=== PATIENT | male | born 1965 | race Caucasian/White ===

== ENCOUNTER 2022-01-17 07:36 | Outpatient (CLI) | payer OTHER, SELFPAY ==
--- NOTE | 2022-01-17 | ECHO_ITS ---
Patient Info Name: Jesus Mckeon Age: 56 years : 1965 Gender: Male Ht: 70 in Wt: 197 lbs BSA: 2.12 m2 HR: 61 bpm BP: 130 / 80 mmHg Technical Quality: Good Exam Date: 01/17/2022 8:36 AM Exam Location: [facility] Patient Status: Outpatient Admit Date: 01/17/2022 Staff Ordering Physician: Kodak Riley Do Gold Miner: Brady Mcmahon, MARKO, RT Attending Provider: Kodak Riley Do Referring Physician: Osvaldo FIERRO; Exam Type: CA echo doppler color flow Study Info Indications R55 - Syncope and collapse Complete two-dimensional, color flow and Doppler transthoracic echocardiogram is performed. Strain analysis performed. Summary 1. Complete two-dimensional, color flow and Doppler transthoracic echocardiogram is performed. 2. Left ventricular chamber dimension is normal. 3. Left ventricular systolic function is normal, estimated at 60-65%. 4. The left ventricular diastolic function is normal. 5. E/e' 7 is not elevated. 6. Global longitudinal strain is normal at -18.8%. 7. There is trace aortic valve regurgitation. 8. There is mild mitral valve regurgitation. 9. There is mild tricuspid valve regurgitation. 10. No pulmonary hypertension, estimated pulmonary arterial systolic pressure is 28 mmHg. 11. There is trace pulmonic regurgitation. Left Ventricle E/e' 7 is not elevated. Global longitudinal strain is normal at -18.8%. Left ventricular chamber dimension is normal. Left ventricular systolic function is normal, estimated at 60-65%. The left ventricular diastolic function is normal. Right Ventricle Right ventricular systolic function is normal and with normal TAPSE 1.9 cm. Right ventricular chamber dimension is normal. Left Atria Left atrial chamber dimension is normal. Right Atria Right atrial chamber dimension is normal. Aortic Valve The aortic valve is trileaflet. There is no aortic valve stenosis. There is trace aortic valve regurgitation. Pulmonic Valve There is trace pulmonic regurgitation. Mitral Valve There is no mitral valve stenosis. There is mild mitral valve regurgitation. Tricuspid Valve There is mild tricuspid valve regurgitation. No pulmonary hypertension, estimated pulmonary arterial systolic pressure is 28 mmHg. Pericardium/Pleural There is no pericardial effusion. Inferior Vena Cava Normal inferior vena cava with >50% collapse upon inspiration consistent with normal right atrial pressure, 5 mmHg. Aorta The aortic root size at the sinus of Valsalva is normal. Left Ventricular Outflow Tract Name Value Normal LVOT 2D LVOT Diameter 2.0 cm LVOT Doppler LVOT Peak Gradient 4 mmHg LVOT Mean Gradient 2 mmHg LVOT VTI 19 cm LVOT VTI/AV VTI Ratio 0.7 LVOT Stroke Volume 63 ml LVOT CO 4.0 l/min LVOT CI 1.9 l/min/m2 Mitral Valve Name
--- NOTE | 2022-01-17 | EST_ITS ---
Patient Info Name: Jesus Mckeon Age: 56 years : 1965 Gender: Male Ht: 70 in Wt: 195 lbs BSA: 2.11 m2 Exam Date: 01/17/2022 10:12 AM Exam Location: [facility] Stress Patient Status: Outpatient Admit Date: 01/17/2022 Staff Ordering Physician: Kodak Riley Do Attending Provider: Kodak Riley Do Exercise Technologist: Brady Mcmahon RDCS, RT Exercise Physician: Lee Valdovinos DO Exam Type: CA stress test treadmill Study Info An exercise stress test was performed. Summary 1. 1. Negative Shane exercise stress test for ischemic ST changes by ECG criteria. 2. 2. Excellent functional status, achieving 13.9 METs of workload. 3. 3. Appropriate HR response to exercise. 4. 4. Appropriate HR recovery at 1 minute post exercise. 5. 5. No imaging with stress testing. 6. 6. Patient informed of the above results. Protocol: Shane Stress ECG Details Stage: REST Duration (min): 11 min : 39 sec Speed (mph): 0.0 Grade (%): 0 HR (bpm): 56 SBP (mmHg): 130 DBP (mmHg): 81 METS: --- Stage: REST Duration (min): 21 min : 15 sec Speed (mph): 0.0 Grade (%): 0 HR (bpm): 58 SBP (mmHg): 130 DBP (mmHg): 81 METS: --- Stage: STAGE 1 Duration (min): 1 min : 0 sec Speed (mph): 1.7 Grade (%): 10 HR (bpm): 79 SBP (mmHg): 130 DBP (mmHg): 81 METS: --- Stage: STAGE 1 Duration (min): 2 min : 0 sec Speed (mph): 1.7 Grade (%): 10 HR (bpm): 88 SBP (mmHg): 130 DBP (mmHg): 81 METS: --- Stage: STAGE 1 Duration (min): 3 min : 0 sec Speed (mph): 1.7 Grade (%): 10 HR (bpm): 87 SBP (mmHg): 137 DBP (mmHg): 80 METS: --- Stage: STAGE 2 Duration (min): 1 min : 0 sec Speed (mph): 2.5 Grade (%): 12 HR (bpm): 96 SBP (mmHg): 137 DBP (mmHg): 80 METS: --- Stage: STAGE 2 Duration (min): 2 min : 0 sec Speed (mph): 2.5 Grade (%): 12 HR (bpm): 101 SBP (mmHg): 125 DBP (mmHg): 68 METS: --- Stage: STAGE 2 Duration (min): 3 min : 0 sec Speed (mph): 2.5 Grade (%): 12 HR (bpm): 106 SBP (mmHg): 125 DBP (mmHg): 68 METS: --- Stage: STAGE 3 Duration (min): 1 min : 0 sec Speed (mph): 3.4 Grade (%): 14 HR (bpm): 114 SBP (mmHg): 138 DBP (mmHg): 75 METS: --- Stage: STAGE 3 Duration (min): 2 min : 0 sec Speed (mph): 3.4 Grade (%): 14 HR (bpm): 122 SBP (mmHg): 138 DBP (mmHg): 75 METS: --- Stage: STAGE 3 Duration (min): 3 min : 0 sec Speed (mph): 3.4 Grade (%): 14 HR (bpm): 126 SBP (mmHg): 153 DBP (mmHg): 71 METS: --- Stage: STAGE 4 Duration (min): 1 min : 0 sec Speed (mph): 4.2 Grade (%): 16 HR (bpm): 134 SBP (mmHg): 153 DBP (mmHg): 71 METS: --- Stage: STAGE 4 Duration (min): 2 min : 0 sec Speed (mph): 4.2 Grade (%): 16 HR (bpm): 142 SBP (mmH
--- NOTE | 2022-01-23 12:55 | WPDHOLTEREM ---
Holter/Event Monitor Holter/Event Monitor Date of procedure: 01/17/22 Holter/Event Procedure: 48 Hr Holter Monitor Indications: Syncope Conclusion: 1. 48 hour holter monitor on 01/17/22. 2. Underlying rhythm is sinus rhythm. HR range 46-135 bpm; average HR 74 bpm. 3. There are 6 premature supraventricular complexes. No supraventricular tachycardia. 4. There are 5 premature ventricular complexes. No ventricular tachycardia. 5. No sinoatrial or atrioventricular blocks. No significant pauses greater than 2 seconds. 6. No symptoms available for correlation.
== END 2022-01-17 07:37 | disposition home or self-care (01) ==
LOC: ANHCARD 07:41
DX: R55 Syncope and collapse (principal); R41.3 Other amnesia; I34.0 Nonrheumatic mitral (valve) insufficiency; I36.1 Nonrheumatic tricuspid (valve) insufficiency
CPT/HCPCS: 93017; 93225; 93226; 93306

== ENCOUNTER 2024-08-31 14:15 | Outpatient (RCR) | payer BC, SELFPAY ==
--- NOTE | 2024-08-31 15:34 | OTOPEVDC ---
Assessment and note entered by MEGAN Gomez/Rito, NIKOLAI Evaluation Summary 08/31/24 Assessment Status Evaluation Diagnosis M79.612 Pain in left hand Subjective Information Patient reports experiencing left hand/wrist pain for years . He reports pain fluctuates. 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 He uses equipment repetitively. He brings his ground spray paint equipment in today and demonstrates the repetitive wrist motion he does. He reports he is only interested in a home exercise program and does not want to return for regular follow up. Reported Pain Level Pain Score 04/24 Assessment OT Clinical Summary Patient referred to OT with dx of pain in his left hand. After viewing his work task it appears he repetitively uses wrist radial deviation. Charanjit's test is positive and he demonstrates hypomobility of the 1st dorsal compartment. Issued stretching, self massage, active ROM, and strengthening for signs and symptoms of de Quervain's tenosynovitis. Patient demonstrates excellent understanding of all materials. Patient is only interested in a home exercise program at this time. No further skilled OT indicated. D/C OT with HEP. Plan of Care OT Services Indicated No
== END 2024-08-31 16:29 | disposition home or self-care (01) ==
LOC: ANHOT 14:15
PROVIDERS: PCP Orthopaedic Surgery; Visit Provider Orthopaedic Surgery
DX: M79.642 Pain in left hand (principal)
CPT/HCPCS: 97110; 97166

== ENCOUNTER 2024-09-17 11:13 | Observation (INO) | payer BC, SELFPAY ==
[2024-09-17] VITALS (10 sets, daily range): BP systolic 132–151; BP diastolic 80–98; PULSE 66–80; RESP 13–20; TEMP 36.6–36.8; O2SAT 95–98; BMI 32.0
--- NOTE | ~2024-09-17 | CT_ITS ---
EXAMINATION: CTA chest PE protocol DATE: 09/17/2024 15:11 CDT INDICATION: Chest pain with elevated d-dimer TECHNIQUE: Computed tomographic angiography (CTA) of the chest was performed with 100 mL Omnipaque-35 0 intravenous contrast. The dose-length product was 740.25 mGy-cm. Maximum intensity projection 3D-re constructions of the aorta and other arteries were constructed by the technologist on a separate work station. Automated exposure control and iterative reconstruction technique were employed. COMPARISON: None. FINDINGS: Study is technically adequate without evidence for pulmonary embolism. Heart size normal. S mall hiatal hernia. No thoracic lymphadenopathy. Upper abdomen is unremarkable. There is dependent at electasis. No focal airspace consolidation. No pneumothorax. Mild thoracic spondylosis. Small hiatal hernia. IMPRESSION: 1. No acute cardiopulmonary disease. No evidence for pulmonary embolism. Reviewed, dictated and finalized at location A.
--- NOTE | ~2024-09-17 | XR_ITS ---
EXAMINATION: XR chest 2V 09/17/2024 12:56 INDICATION: Chest tightness PROCEDURE: 2 view chest COMPARISON: No prior studies for comparison. FINDINGS: The lungs are clear. The cardiomediastinal silhouette is within normal limits. There are no pleural effusions. There is no pneumothorax suspected. IMPRESSION: 1: NO ACUTE CARDIOPULMONARY DISEASE. Reviewed, dictated and finalized at location A.
--- NOTE | 2024-09-17 11:17 | ECG_ITS ---
Test Date: 2024-09-17 11:22:09 Measurements Intervals [place] Rate: 76 P: 46 CT: 156 QRS: 43 QRSD: 105 T: 74 QT: 334 QTc: 377 Interpretive Statements SINUS RHYTHM DELAYED PRECORDIAL R/S TRANSITION BORDERLINE ECG No previous ECG available for comparison Electronically Signed On 09-17-2024 11:23:19 CDT by Lee Valdovinos D.O.
[2024-09-17 11:41] LABS: Basophils Percent Auto 0.6 % (0.2-1.2); Eosinophils Absolute Auto 0.1 K/mm3 (0-0.3); Eosinophils Percent Auto 1.3 % (0-4.4); Hematocrit 43.8 % (42.0-52.0); Hemoglobin 13.8 g/dL (14.0-18.0); Immature Granulocyte Absolute 0.02 K/mm3 (0.00-0.031); Immature Granulocyte Percent A 0.3 % (0-0.5); Lymphocytes Absolute Auto 1.04 K/mm3 (0.9-3.2); Lymphocytes Percent Auto 16.6 % (18.3-44.2); Mean Corpuscular HGB Conc 31.5 g/dl (32-36); Mean Corpuscular Hemoglobin 28.6 pg (26-34); Mean Corpuscular Volume 90.9 fl (80-100); Mean Platelet Volume 11.1 fl (7.4-10.4); Monocytes Absolute Auto 0.6 K/mm3 (0.1-0.6); Monocytes Percent Auto 9.9 % (2.6-8.5); Neutrophils Absolute Auto 4.5 K/mm3 (1.3-6.7); Neutrophils Percent Auto 71.3 % (45.5-73.1); Platelet Count Result 206 k/mm3 (150-375); Red Blood Count 4.82 M/mm3 (4.6-6.20); White Blood Count 6.3 K/mm3 (4.5-10.0)
--- NOTE | 2024-09-17 11:44 | PC.NURSE ---
Patient denies any chest pain/pressure at this time.
[2024-09-17 11:55] LABS: Partial Thromboplastin Time 28.4 Seconds (22.3-36.8)
[2024-09-17 11:56] LABS: Alanine Aminotransferase 53 U/L (6-50); Albumin Level 3.6 g/dL (3.5-5.1); Alkaline Phosphatase 79 U/L (38-126); Anion Gap 5 mmol/L (4-12); Aspartate Amino Transferase 54 U/L (17-59); Bilirubin,Total 0.5 mg/dL (0.2-1.3); Blood Urea Nitrogen 26 mg/dL (9-20); Calcium 8.6 mg/dL (8.4-10.2); Carbon Dioxide 23 mmol/L (22-30); Chloride 110 mmol/L (98-107); Estimated CRCL calculation 66 ml/min; Estimated Glomerular Filt Rate 56; Glucose 98 mg/dL (65-110); Lipase 96 U/L (23-300); Potassium 4.3 mmol/L (3.4-5.0); Sodium 138 mmol/L (137-145); Total Protein 6.6 g/dL (6.3-8.2)
[2024-09-17 12:05] LABS: Troponin I < 0.012 ng/mL (0.000-0.034)
[2024-09-17 12:21] LABS: INR 1.2; Prothrombin Time 15.1 Seconds (11.1-14.7)
--- NOTE | 2024-09-17 12:31 | ED_ITS ---
HPI - General Adult General Chief complaint: Chest Pain Stated complaint: chest tightness Time Seen by Provider: 09/17/24 11:59 History of Present Illness HPI narrative: 58-year-old male presents to the emergency department for evaluation for exertional left-sided chest pain. Patient states that he has had exertional chest tightness and chest pain this entire mowing season. Patient states he did not have similar symptoms last year. Patient states today he had left-sided chest pain that radiated into his neck into his left arm today. Patient had a stress test approximately 3 years ago. Patient does admit to very poor diet. Related Data Home Medications ?Medication ?Instructions ?Recorded ?Confirmed ?Last Taken ?Type anastrozole 1 mg tablet 0.5 mg PO WEEKLY 08/13/24 09/17/24 09/14/24 09:00 History 0.5 mg testosterone cypionate 100 mg/mL 25 mg IM ONCE 08/13/24 09/17/24 09/15/24 09:00 History intramuscular oil 25 mg (Depo-Testosterone) Allergies Allergy/AdvReac Type Severity Reaction Status Date / Time zolpidem (From Ambien) Allergy Mild Hallucinati Verified 09/17/24 17:42 ng Review of Systems 2 Review of Systems: All systems reviewed & are unremarkable except as noted in HPI and below PMFSH Social History Social History Smoking status: Never smoker Alcohol intake: current Drinks per week: 1 Alcohol use details: rarely Substance use: never Substance use type: does not use Do You Feel Safe in your Home?: Yes Lack of Transportation: No Lack of Food: Never True Current Housing: I Have Housing Concerned About Future Housing: No Difficulty Paying Gas/Electric Bills: No Difficulty Paying for Meds: No Currently Unemployed: No Education: Associate Degree Difficulty w/ Childcare or Family Care: No Spiritual care concerns: No Exam 2 Narrative: APPEARANCE: Well appearing, no pain, no distress, well-nourished. HEAD: normocephalic, atraumatic. EYES: PERRLA/EOMI, conjunctivae clear. NOSE: Normal no drainage EARS:TMS clear with good light reflex. THROAT: Pharynx clear, no exudate. NECK: Supple. No adenopathy, no masses. RESPIRATORY: Airway patent, respirations nonlabored. Clear to auscultation bilaterally, no rales, rhonchi, wheezing. CARDIOVASCULAR: Regular rate and rhythm without murmurs rubs or gallops. ABDOMINAL: Soft, nontender, nondistended, normal bowel sounds MUSCULOSKELETAL: Moves all extremities. Strength/ROM intact, No edema, No calf tenderness. NEURO: Alert. Cranial nerves II through XII intact. Good gait. Good coordination SKIN: Warm, dry. Normal Color Course Vital Signs Vital signs: Vital Signs Temperature 97.9 F 09/17/24 11:20 Pulse Rate 77 09/17/24 11:20 Respiratory Rate 18 09/17/24 11:20 Blood Pressure 133/83 09/17/24 11:20 Pulse Oximetry 97 09/17/24 11:20 Oxygen Delivery Room Air 09/17/24 11:20 Temperature 98.2 F 09/17/24 17:00 Pulse Rate 70 09/17/24 17:00 Respiratory Rate 16 09/17/24 17:00 Blood Pressure 151/98 H 09/17/24 17:00 Pulse Oximetry 96 09/17/24 17:00 Oxygen Delivery Room Air 09/17/24 11:44 Medical Decision Making [facility] Narrative Medical decision making narrative: 58-year-old male presents to the emergency department for evaluation for intermittent left-sided exertional chest pain. Patient is currently chest pain chest tightness free. Patient is afebrile with no leukocytosis and hemoglobin of 13.8. Patient's INR is 1.2. Patient has no acute abnormalities on his CMP, patient's creatinine is 1.32 with no previous values. Patient's troponin is less than 0.012. EKG shows normal sinus rhythm no evidence of acute STEMI. D- dimer is elevated, CTA was negative for pulmonary embolism. Patient's 2nd troponin was is increased but still within normal limits. Case was discussed with hospitalist patient was admitted to the IMU for further cardiac evaluation. Differential Diagnosis Differential Diagnosis: ACS, PR unstable angina, pulmonary embolism, pneumonia, pneumothorax Vital Signs Vital Signs: Vital Signs Temperature 97.9 F 09/17/24 11:20 Pulse Rate 77 09/17/24 11:20 Respiratory Rate 18 09/17/24 11:20 Blood Pressure 133/83 09/17/24 11:20 Pulse Oximetry 97 09/17/24 11:20 Oxygen Delivery Room Air 09/17/24 11:20 Temperature 98.2 F 09/17/24 17:00 Pulse Rate 70 09/17/24 17:00 Respiratory Rate 16 09/17/24 17:00 Blood Pressure 151/98 H 09/17/24 17:00 Pulse Oximetry 96 09/17/24 17:00 Oxygen Delivery Room Air 09/17/24 11:44 Lab Data Lab results reviewed: Yes I reviewed the patient's lab results. 09/17/24 11:32 09/17/24 11:32 Labs: Lab Results 09/17/24 09/17/24 Range/Units 11:32 14:07 WBC 6.3 (4.5-10.0) K/mm3 RBC 4.82 (4.6-6.20) M/mm3 Hgb 13.8 L (14.0-18.0) g/dL Hct 43.8 (42.0-52.0) % MCV 90.9 (80-100) fl MCH 28.6 (26-34) pg MCHC 31.5 L (32-36) g/dl RDW 16.0 H (11.5-14.5) % Plt Count 206 (150-375) k/mm3 MPV 11.1 H (7.4-10.4) fl Immature Gran % (Auto) 0.3 (0-0.5) % Neut % (Auto) 71.3 (45.5-73.1) % Lymph % (Auto) 16.6 L (18.3-44.2) % Anderson % (Auto) 9.9 H (2.6-8.5) % Eos % (Auto) 1.3 (0-4.4) % Baso % (Auto) 0.6 (0.2-1.2) % Lymph # (Auto) 1.04 (0.9-3.2) K/mm3 Anderson # (Auto) 0.6 (0.1-0.6) K/mm3 Eos # (Auto) 0.1 (0-0.3) K/mm3 Baso # (Auto) 0.0 (0.0-0.1) K/mm3 Abs Immat Gran (auto) 0.02 (0.00-0.031) K/mm3 Absolute Neuts (auto) 4.5 (1.3-6.7) K/mm3 Absolute Nucleated RBC 0.000 (0.0-0.012) K/mm3 Nucleated RBC % 0.0 (0.0-0.2) % PT 15.1 H (11.1-14.7) Seconds INR 1.2 APTT 28.4 (22.3-36.8) Seconds D-Dimer 0.66 H (<0.48) ug/mL Sodium 138 (137-145) mmol/L Potassium 4.3 (3.4-5.0) mmol/L Chloride 110 H (98-107) mmol/L Carbon Dioxide 23 (22-30) mmol/L Anion Gap 5 (4-12) mmol/L BUN 26 H (9-20) mg/dL Creatinine 1.32 H (0.7-1.3) mg/dL Estim Creat Clear Calc 66 ml/min Estimated GFR 56 L (59 - ) Glucose 98 (65-110) mg/dL Calcium 8.6 (8.4-10.2) mg/dL Total Bilirubin 0.5 (0.2-1.3) mg/dL AST 54 (17-59) U/L ALT 53 H (6-50) U/L Alkaline Phosphatase 79 (38-126) U/L Troponin I < 0.012 0.024 D (0.000-0.034) ng/mL NT-Pro-B Natriuret Pep < 20 (19.9-100) pg/mL Total Protein 6.6 (6.3-8.2) g/dL Albumin 3.6 (3.5-5.1) g/dL Lipase 96 (23-300) U/L Imaging Data Radiologist's impression: Impressions Chest X-Ray 09/17/24 12:58 IMPRESSION: 1: NO ACUTE CARDIOPULMONARY DISEASE. Chest CTA 09/17/24 15:11 IMPRESSION: 1. No acute cardiopulmonary disease. No evidence for pulmonary embolism. ECG Data EKG #1: EKG Interpretation: normal rate, sinus rhythm, no ectopy, no ST changes, normal QRS, normal QT and NL axis Discharge Plan Discharge Clinical Impression: Chest pain Patient Disposition: Still a Patient Condition: Serious Quality HEART score for chest pain patients History: slightly suspicious ECG: normal Age: > or = to 65 years Risk factors: 1 or 2 risk factors Troponin: < or = to 1x normal limit Heart score: 3
--- NOTE | 2024-09-17 12:31 | PC.NURSE ---
called lab to add on D Dimer and BNP
[2024-09-17 12:41] LABS: D Dimer 0.66 ug/mL (<0.48)
[2024-09-17 12:53] LABS: NT Pro B Type Natriuretic Pept < 20 pg/mL (19.9-100)
--- NOTE | 2024-09-17 14:03 | ECG_ITS ---
Test Date: 2024-09-17 14:06:15 Measurements Intervals [place] Rate: 64 P: 49 FL: 157 QRS: 33 QRSD: 107 T: 67 QT: 365 QTc: 377 Interpretive Statements SINUS RHYTHM NORMAL ECG Compared to ECG 09/17/2024 11:22:09 No significant changes Electronically Signed On 09-17-2024 16:02:26 CDT by Lee Valdovinos D.O.
--- NOTE | 2024-09-17 14:12 | P.HP_ITS ---
H&P: HPI History of Present Illness Date/Time: 09/17/24 14:12 Chief Complaint: Chest pain Narrative: 58-year-old male history of chronic knee pain presents the hospital with acute chest pain, left arm and neck pain with active. Patient states that his father had a 5 vessel CABG. Patient states that he was cutting the grass on Saturday and had a pressure sensation in his left neck, which resolved. On Saturday the patient was at work and had pressure in his left chest and neck and called his PCP with recommendations for going to the hospital if it happened again. Patient states that happened again this morning stay presented to the emergency room. He denies nausea vomiting. Blood work in the ED shows hemoglobin of 13.8, D-dimer of 0.66, BUN of 26, creatinine of 1.32, GFR of 56, AST of 53, 1st troponin negative, chest x-ray with no acute process. Review of Systems Review of Systems: 12 systems were reviewed and are negativ e except for as per HPI. [facility] Social History Social History (Reviewed 09/17/24 @ 07:21 by Genna Dunn [facility]) Smoking status: Never smoker Alcohol intake: current Drinks per week: 1 Alcohol use details: rarely Substance use: never Substance use type: does not use Do You Feel Safe in your Home?: Yes Lack of Transportation: No Lack of Food: Never True Current Housing: I Have Housing Concerned About Future Housing: No Difficulty Paying Gas/Electric Bills: No Difficulty Paying for Meds: No Currently Unemployed: No Education: Associate Degree Difficulty w/ Childcare or Family Care: No Spiritual care concerns: No Meds Home Medications and Allergies Home Medications ?Medication ?Instructions ?Recorded ?Confirmed ?Type anastrozole 1 mg tablet 0.5 mg PO WEEKLY 08/13/24 09/17/24 History diclofenac sodium 75 mg 75 mg PO BID #60 tabs 08/13/24 09/17/24 Rx tablet,delayed release testosterone cypionate 100 mg/mL 25 mg IM ONCE 08/13/24 09/17/24 History intramuscular oil (Depo-Testosterone) prednisone 10 mg tablet 10 mg PO BID 10 days #20 tabs 09/17/24 09/17/24 Rx Allergies Allergy/AdvReac Type Severity Reaction Status Date / Time zolpidem (From Ambien) Allergy Mild Hallucinati Verified 09/17/24 17:42 ng Vital Signs Vital Signs - 24 hr 09/17/24 11:20 09/17/24 11:44 09/17/24 11:44 Temperature 97.9 F Pulse Rate 77 80 Respiratory Rate 18 13 Blood Pressure 133/83 148/90 H Pulse Oximetry 97 95 98 Oxygen Delivery Room Air Room Air Exam Narrative: General: well appearing, appears stated age. HEENT: normocephalic, atraumatic. Mucous membranes moist. EOMI, PERRLA, bilateral sclera anicteric, no conjunctival injection. Neck supple without JVD, lymphadenopathy, or bruit. Respiratory: clear to ascultation bilaterally. No rales/rhonic/wheezes. Cardiovascular: Regular rate and rhythm, normal S1-S2 upon ascultation. No murmurs, rubs, or clicks. PMI is nondisplaced, capillary refill less than 3 second. Abdomen: Soft, round, no pulsatile masses, nondistended and nontender. No rebound, no guarding. No CVA tenderness, no hepatosplenomegaly. Bowel sounds present to all four quadrants. No high pitch or tinkling sounds, resonant to percussion. Extremities: No cyanosis, clubbing, or edema present. Pulses are palpable 2/2. Active ROM to all four extremities. Neuro: Alert and orientated x 4. PERRLA. Cranial nerves 2-12 intact without foca l deficit. Skin: Warm, dry, and intact, without rash, erythema, or lesion. Psych: pleasant, cooperative, normal speech, normal affect, no hallucinations, no dysarthia H&P: Results Labs Labs: Short CBC 09/17/24 Range/Units 11:32 WBC 6.3 (4.5-10.0) K/mm3 Hgb 13.8 L (14.0-18.0) g/dL Hct 43.8 (42.0-52.0) % Plt Count 206 (150-375) k/mm3 BMP 09/17/24 11:32 Sodium 138 Potassium 4.3 Chloride 110 H Carbon Dioxide 23 BUN 26 H Creatinine 1.32 H Glucose 98 Calcium 8.6 Cardiac Enzymes 09/17/24 Range/Units 11:32 Troponin I < 0.012 (0.000-0.034) ng/mL Liver Function 09/17/24 Range/Units 11:32 Total Bilirubin 0.5 (0.2-1.3) mg/dL AST 54 (17-59) U/L ALT 53 H (6-50) U/L Alkaline Phosphatase 79 (38-126) U/L Albumin 3.6 (3.5-5.1) g/dL Assessment and Plan Assessment and plan (1) Chest pain: Code(s): R07.9 - Chest pain, unspecified Status: Acute Assessment and Plan: Second troponin with increased delta Stress test EKG and nitro for chest pain Aspirin Lipid panel pending NPO midnight (2) MEDHAT (acute kidney injury): Code(s): N17.9 - Acute kidney failure, unspecified Status: Acute Assessment and Plan: Dot history CKD IV hydration Repeat BMP in morning (3) Chronic knee pain: Code(s): M25.569 - Pain in unspecified knee; G89.29 - Other chronic pain Status: Acute Assessment and Plan: Tylenol and oxycodone (4) Anemia: Code(s): D64.9 - Anemia, unspecified Status: Acute Assessment and Plan: Acute signs of bleeding Anemia workup Quality VTE Prophylaxis VTE prophylaxis: mechanical ordered and pharmacologic ordered Hospitalist MIPS Advance Care Plan I have confirmed that the patient's Advanced Care Plan is present, code status is documented, or surrogate decision maker is listed in patient medical record.: Yes Medication Reconciliation I have utilized all available resources to obtain, update and review the jaime ents current medications (includes all prescriptions, OTC, herbals, cannabis, and nutritional supplements).: Yes
[2024-09-17 14:46] LABS: Troponin I 0.024 ng/mL (0.000-0.034)
[2024-09-17 17:54] LABS: Troponin I 0.021 ng/mL (0.000-0.034)
--- NOTE | 2024-09-17 20:03 | ADMGEN ---
This patient, Jesus Mckeon, was admitted to IMU Room 232-0 @1630. Patient/family oriented to hospital policies and general routines including ID bracelet, bed and alarms, visiting hours, pain management, procedures, bathroom and other care routines, personal items, smoking policy, room service/diet, and visiting hours. Information on how to activate the Rapid Response Team has been discussed. Patient/Family are encouraged to report perceived risks to care and to ask questions if they do not understand what they are told or what they should do.
[2024-09-18] VITALS (8 sets, daily range): BP systolic 117–127; BP diastolic 71–86; PULSE 50–75; RESP 16–20; TEMP 36.4–36.8; O2SAT 96–97
--- NOTE | 2024-09-18 | EST_ITS ---
Patient Info Name: Jesus Mckeon Age: 58 years : 1965 Gender: Male Ht: 70 in Wt: 223 lbs BSA: 2.27 m2 HR: 59 bpm BP: 120 / 69 mmHg Exam Date: 09/18/2024 1:05 AM Patient Status: I Admit Date: 09/17/2024 Exam Type: CA stress test treadmill A treadmill exercise stress test was performed. Staff Referring Physician: Matthew Chan Attending Provider: Truong Page Exercise Technologist: Nereyda Jarvis Exercise Physician: Lee Valdovinos DO Summary 1. 1. Negative Shane exercise stress test for ischemic ST changes by ECG criteria. 2. 2. Good functional capacity, achieving 10 METs of workload. 3. 3. Hypertensive response to exercise. 4. 4. Appropriate HR response to exercise. 5. 5. Appropriate HR recovery at 1 minute post exercise. 6. 6. No imaging with stress testing. 7. 7. Patient informed of the above results. Protocol: Shane Stress ECG Details Stage: REST Duration (min): 0 min : 55 sec Speed (mph): 0.0 Grade (%): 0 HR (bpm): 60 SBP (mmHg): 120 DBP (mmHg): 69 METS: --- Stage: REST Duration (min): 15 min : 7 sec Speed (mph): 0.0 Grade (%): 0 HR (bpm): 64 SBP (mmHg): 120 DBP (mmHg): 69 METS: --- Stage: STAGE 1 Duration (min): 1 min : 0 sec Speed (mph): 1.7 Grade (%): 10 HR (bpm): 89 SBP (mmHg): 120 DBP (mmHg): 69 METS: --- Stage: STAGE 1 Duration (min): 2 min : 0 sec Speed (mph): 1.7 Grade (%): 10 HR (bpm): 96 SBP (mmHg): 120 DBP (mmHg): 69 METS: --- Stage: STAGE 1 Duration (min): 3 min : 0 sec Speed (mph): 1.7 Grade (%): 10 HR (bpm): 94 SBP (mmHg): 127 DBP (mmHg): 67 METS: --- Stage: STAGE 2 Duration (min): 1 min : 0 sec Speed (mph): 2.5 Grade (%): 12 HR (bpm): 106 SBP (mmHg): 127 DBP (mmHg): 67 METS: --- Stage: STAGE 2 Duration (min): 2 min : 0 sec Speed (mph): 2.5 Grade (%): 12 HR (bpm): 116 SBP (mmHg): 122 DBP (mmHg): 67 METS: --- Stage: STAGE 2 Duration (min): 3 min : 0 sec Speed (mph): 2.5 Grade (%): 12 HR (bpm): 122 SBP (mmHg): 122 DBP (mmHg): 67 METS: --- Stage: STAGE 3 Duration (min): 1 min : 0 sec Speed (mph): 3.4 Grade (%): 14 HR (bpm): 128 SBP (mmHg): 122 DBP (mmHg): 67 METS: --- Stage: STAGE 3 Duration (min): 2 min : 0 sec Speed (mph): 3.4 Grade (%): 14 HR (bpm): 134 SBP (mmHg): 122 DBP (mmHg): 67 METS: --- Stage: STAGE 3 Duration (min): 3 min : 0 sec Speed (mph): 3.4 Grade (%): 14 HR (bpm): 139 SBP (mmHg): 122 DBP (mmHg): 67 METS: --- Stage: STAGE 4 Duration (min): 0 min : 9 sec Speed (mph): 4.2 Grade (%): 16 HR (bpm): 140 SBP (mmHg): 122 DBP (mmHg): 67 METS: --- Stage: RECOVERY Duration (min): 0 min : 50 sec Speed (mph): 0.0 Grade (%): 0 HR (bpm): 131 SBP (mmHg): 212 DBP (mmHg): 115 METS: --- Stage: RECOVERY Duration (min): 1 min : 50 sec Speed (mph): 0.0 Grade (%): 0 HR (bpm): 107 SBP (mmHg): 212 DBP (mmHg): 115 METS: --- Stage: RECOVERY Duration (min): 2 min : 50 sec Speed (mph): 0.0 Grade (%): 0 HR (bpm): 95 SBP (mmHg): 212 DBP (mmHg): 115 METS: --- Stage: RECOVERY Duration (min): 3 min : 32 sec Speed (mph): 0.0 Grade (%): 0 HR (bpm): 93 SBP (mmHg): 190 DBP (mmHg): 86 METS: --- Rest HR: 64 bpm Peak HR: 141 bpm Rest Sys BP: 120 mmHg Peak Sys BP: 212 mmHg Max Pred HR: 164 bpm % Max Pred HR: 86 % Target HR: 139 bpm Max RPP: 29,892 bpm*mmHg Terrazas Score: -13 BP Response: Patient exhibited a hypertensive response with stress Termination Reason: Reached target heart rate or workload Cardiac Symptoms: Chest pain, Shortness of breath Max ST Seg Deviation: 4.50 mm Total Time: 9 min : 9 sec Rest Suarez BP: 69 mmHg Peak Suarez BP: 115 mmHg Angina Score: None Total METS: 10.3 Resting ECG Sinus rhythm. Stress ECG No ST changes. Arrhythmias None. Report Signatures
[2024-09-18] MEDS: SODIUM CHLORIDE 0.9% IV 1,000 ML 100 ML IV CONT (04:06)
[2024-09-18 05:43] LABS: Cholesterol 208 mg/dL (0-200); HDL Direct 38 mg/dL; Triglycerides 90 mg/dL (<150)
[2024-09-18 06:15] LABS: LDL Cholesterol Direct 127 mg/dL
[2024-09-18 06:25] LABS: Iron 84 ug/dL (49-181)
[2024-09-18 06:38] LABS: Percent Iron Saturation 25 % (20-50)
[2024-09-18 06:49] LABS: Folic Acid > 20.0 ng/mL (2.76->20)
[2024-09-18 08:40] LABS: Free T4 Free Thyroxine Reflex 0.68 ng/dL (0.78-2.19)
[2024-09-18] MEDS: ASPIRIN 81 MG CHEWABLE TABLET PO (09:22)
[2024-09-18] MEDS: ENOXAPARIN 40 MG/0.4 ML SYRINGE SUB-Q (09:23)
--- NOTE | 2024-09-18 09:52 | PCCARD ---
EKG ORDERED @:00 AM 09/18/24 WAS NOT DONE-CANCELLING ORDER. EKG ORDERED @7:00 AM NOT DONE, PATIENTS RN SAID TO CANCEL THAT PATIENT IS GETTING A STRESS TEST
--- NOTE | 2024-09-18 10:44 | P.PNIM_ITS ---
Progress Note: A&P Assessment and Plan (1) Chest pain: Code(s): R07.9 - Chest pain, unspecified Status: Acute Assessment and Plan: Second troponin with increased delta Stress test EKG and nitro for chest pain Aspirin Lipid panel pending Cardiology consulted NPO midnight (2) MEDHAT (acute kidney injury): Code(s): N17.9 - Acute kidney failure, unspecified Status: Acute Assessment and Plan: Dot history CKD IV hydration Repeat BMP in morning (3) Chronic knee pain: Code(s): M25.569 - Pain in unspecified knee; G89.29 - Other chronic pain Status: Acute Assessment and Plan: Tylenol and oxycodone (4) Anemia: Code(s): D64.9 - Anemia, unspecified Status: Acute Assessment and Plan: Acute signs of bleeding Anemia workup Subjective Date/time seen: 09/18/24 10:44 Interval history: Interval history:58-year-old male history of chronic knee pain presents the hospital with acute chest pain, left arm and neck pain with active. Chest CT shows no acute cardiopulmonary disease and no evidence of pulmonary embolism. Underwent stress test which shows no significant finding Review of Systems Review of Systems: 12 systems were reviewed and are negativ e except for as per HPI. Exam Narrative: General: well appearing, appears stated age. HEENT: normocephalic, atraumatic. Mucous membranes moist. EOMI, PERRLA, bilateral sclera anicteric, no conjunctival injection. Neck supple without JVD, lymphadenopathy, or bruit. Respiratory: clear to ascultation bilaterally. No rales/rhonic/wheezes. Cardiovascular: Regular rate and rhythm, normal S1-S2 upon ascultation. No murmurs, rubs, or clicks. PMI is nondisplaced, capillary refill less than 3 second. Abdomen: Soft, round, no pulsatile masses, nondistended and nontender. No rebound, no guarding. No CVA tenderness, no hepatosplenomegaly. Bowel sounds present to all four quadrants. No high pitch or tinkling sounds, resonant to percussion. Extremities: No cyanosis, clubbing, or edema present. Pulses are palpable 2/2. Active ROM to all four extremities. Neuro: Alert and orientated x 4. PERRLA. Cranial nerves 2-12 intact without focal deficit. Skin: Warm, dry, and intact, without rash, erythema, or lesion. Psych: pleasant, cooperative, normal speech, normal affect, no hallucinations, no dysarthia Objective Data Vital Signs Vital Signs: Vital Signs - 24 hr 09/17/24 11:20 09/17/24 11:44 09/17/24 11:44 Temperature 97.9 F Pulse Rate 77 80 Respiratory Rate 18 13 Blood Pressure 133/83 148/90 H Pulse Oximetry 97 95 98 Oxygen Delivery Room Air Room Air Fraction of Inspired Oxygen 09/17/24 12:30 09/17/24 14:00 09/17/24 15:00 Temperature Pulse Rate 79 67 68 Respiratory Rate 15 17 18 Blood Pressure 132/84 137/85 142/80 H Pulse Oximetry 97 97 98 Oxygen Delivery Fraction of Inspired Oxygen 09/17/24 17:00 09/17/24 18:00 09/17/24 20:00 Temperature 98.2 F 98.2 F Pulse Rate 70 71 70 Respiratory Rate 16 16 Blood Pressure 151/98 H 146/92 H Pulse Oximetry 96 97 Oxygen Delivery Fraction of Inspired Oxygen 09/17/24 20:00 09/17/24 21:02 09/17/24 22:00 Temperature Pulse Rate 70 75 66 Respiratory Rate 20 Blood Pressure Pulse Oximetry 98 Oxygen Delivery Room Air Fraction of Inspired Oxygen 21 09/18/24 00:00 09/18/24 00:00 09/18/24 02:00 Temperature 98.0 F Pulse Rate 50 L 61 56 L Respiratory Rate 16 Blood Pressure 117/83 Pulse Oximetry 97 Oxygen Delivery Fraction of Inspired Oxygen 09/18/24 04:00 09/18/24 08:00 09/18/24 08:09 Temperature 97.9 F 97.6 F Pulse Rate 65 66 66 Respiratory Rate 16 18 18 Blood Pressure 123/75 127/86 Pulse Oximetry 97 96 96 Oxygen Delivery Room Air Fraction of Inspired Oxygen 21 Intake/Output Intake/Output: Intake & Output 09/15/24 09/16/24 09/17/24 09/18/24 23:59 23:59 23:59 23:59 Intake Total 240 Output Total 700 Balance 240 -700 Meds/Results Medications: Active Medications Generic Name Dose Route Start Last Admin Trade Name Freq PRN Reason Stop Dose Admin Acetaminophen 650 mg 09/18/24 00:59 Acetaminophen 325 Mg Tablet PO Q4H PRN Mild Pain (1-3) or Fever Al Hydrox/Mg Hydrox/Simethicone 30 ml 09/18/24 01:01 Mag Hydrox/Al Hydrox/Simeth 30 Ml Udc PO Q6H PRN Indigestion Aspirin 81 mg 09/18/24 08:00 09/18/24 09:22 Aspirin 81 Mg Chewable Tablet PO 81 mg DAILY@0800 DONITA Administration Enoxaparin Sodium 40 mg 09/18/24 09:00 09/18/24 09:23 Enoxaparin 40 Mg/0.4 Ml Syringe SUB-Q 40 mg DAILY DONITA Administration Sodium Chloride 1,000 mls @ 100 mls/hr 09/18/24 01:00 09/18/24 04:06 Normal Saline Iv IV CONT 100 mls/hr .Q10H DONITA Administration Nitroglycerin 0.4 mg 09/18/24 01:01 Nitroglycerin Sl 0.4 Mg Tablet SUBLINGUAL Q5MIN PRN Chest Pain Ondansetron HCl 4 mg 09/18/24 01:01 Ondansetron Inj 4 Mg/2 Ml Vial IV PUSH Q6H PRN Nausea And Vomiting Oxycodone HCl 5 mg 09/18/24 00:59 Oxycodone Hcl (*Crx) 5 Mg Tab Ir PO Q4H PRN Pain Rated 7-10 Radiology Results: ITS Impressions Chest X-Ray 09/17/24 12:58 IMPRESSION: 1: NO ACUTE CARDIOPULMONARY DISEASE. Chest CTA 09/17/24 15:11 IMPRESSION: 1. No acute cardiopulmonary disease. No evidence for pulmonary embolism. Labs Labs: Laboratory Results - last 24 hr 09/17/24 09/17/24 09/17/24 11:32 14:07 17:06 WBC 6.3 RBC 4.82 Hgb 13.8 L Hct 43.8 MCV 90.9 MCH 28.6 MCHC 31.5 L RDW 16.0 H Plt Count 206 MPV 11.1 H Immature Gran % (Auto) 0.3 Neut % (Auto) 71.3 Lymph % (Auto) 16.6 L Mccone % (Auto) 9.9 H Eos % (Auto) 1.3 Baso % (Auto) 0.6 Lymph # (Auto) 1.04 Mccone # (Auto) 0.6 Eos # (Auto) 0.1 Baso # (Auto) 0.0 Abs Immat Gran (auto) 0.02 Absolute Neuts (auto) 4.5 Absolute Nucleated RBC 0.000 Nucleated RBC % 0.0 PT 15.1 H INR 1.2 APTT 28.4 D-Dimer 0.66 H Sodium 138 Potassium 4.3 Chloride 110 H Carbon Dioxide 23 Anion Gap 5 BUN 26 H Creatinine 1.32 H Estim Creat Clear Calc 66 Estimated GFR 56 L Glucose 98 Calcium 8.6 Iron TIBC % Saturation Total Bilirubin 0.5 AST 54 ALT 53 H Alkaline Phosphatase 79 Troponin I < 0.012 0.024 D 0.021 NT-Pro-B Natriuret Pep < 20 Total Protein 6.6 Albumin 3.6 Triglycerides Cholesterol LDL Cholesterol Direct HDL Direct Lipase 96 Vitamin B12 Folate TSH (Reflex) Free T4 09/18/24 04:49 WBC RBC Hgb Hct MCV MCH MCHC RDW Plt Count MPV Immature Gran % (Auto) Neut % (Auto) Lymph % (Auto) Mccone % (Auto) Eos % (Auto) Baso % (Auto) Lymph # (Auto) Mccone # (Auto) Eos # (Auto) Baso # (Auto) Abs Immat Gran (auto) Absolute Neuts (auto) Absolute Nucleated RBC Nucleated RBC % PT INR APTT D-Dimer Sodium Potassium Chloride Carbon Dioxide Anion Gap BUN Creatinine Estim Creat Clear Calc Estimated GFR Glucose Calcium Iron 84 TIBC 337 % Saturation 25 Total Bilirubin AST ALT Alkaline Phosphatase Troponin I NT-Pro-B Natriuret Pep Total Protein Albumin Triglycerides 90 Cholesterol 208 H LDL Cholesterol Direct 127 HDL Direct 38 Lipase Vitamin B12 860.0 Folate > 20.0 H TSH (Reflex) 5.150 H Free T4 0.68 L Quality VTE Prophylaxis VTE prophylaxis: mechanical ordered and pharmacologic ordered Hospitalist MIPS Advance Care Plan I have confirmed that the patient's Advanced Care Plan is present, code status is documented, or surrogate decision maker is listed in patient medical record.: Yes Medication Reconciliation I have utilized all available resources to obtain, update and review the patients current medications (includes all prescriptions, OTC, herbals, cannabis, and nutritional supplements).: Yes
[2024-09-18 10:58] LABS: Hematocrit 45.5 % (42.0-52.0); Mean Corpuscular HGB Conc 30.8 g/dl (32-36); Mean Corpuscular Hemoglobin 28.2 pg (26-34); Mean Corpuscular Volume 91.7 fl (80-100); Mean Platelet Volume 11.4 fl (7.4-10.4); Platelet Count Result 203 k/mm3 (150-375); Red Blood Count 4.96 M/mm3 (4.6-6.20); Red Cell Distribution Width 16.5 % (11.5-14.5); White Blood Count 8.7 K/mm3 (4.5-10.0)
[2024-09-18 11:44] LABS: Alanine Aminotransferase 51 U/L (6-50); Albumin Level 3.5 g/dL (3.5-5.1); Alkaline Phosphatase 59 U/L (38-126); Anion Gap 5 mmol/L (4-12); Aspartate Amino Transferase 61 U/L (17-59); Bilirubin,Total 0.8 mg/dL (0.2-1.3); Blood Urea Nitrogen 18 mg/dL (9-20); Calcium 8.7 mg/dL (8.4-10.2); Carbon Dioxide 23 mmol/L (22-30); Chloride 110 mmol/L (98-107); Estimated CRCL calculation 69 ml/min; Estimated Glomerular Filt Rate 59; Glucose 96 mg/dL (65-110); Potassium 4.3 mmol/L (3.4-5.0); Sodium 138 mmol/L (137-145); Total Protein 6.4 g/dL (6.3-8.2)
--- NOTE | 2024-09-18 13:05 | P.CONCA_ITS ---
Assessment and Plan Assessment and plan (1) Chest pain: Code(s): R07.9 - Chest pain, unspecified Status: Acute Assessment and Plan: He has been r/o for PR by serial troponin and EKG. Stress test this morning is normal. This could still be stable angina as stress test could be false negative. Start Isosorbide mononitrate 30 mg daily. May d/c home from cardiology standpoint and f/u with me in 2 weeks. (2) Dyslipidemia: Code(s): E78.5 - Hyperlipidemia, unspecified Status: Acute Assessment and Plan: Advise to maintain a low saturated fat diet. History of Present Illness History of Present Illness Consult date/time: 09/18/24 13:05 Reason For Visit: Chest pain, stable angina Narrative: 58 yr old man presents to ER with chest pain. He has a dyslipidemia and family history of father with CABG x 5 vessels. Reports he had been sedentary for last 6 months, and then started mowing his grass and had chest pain with radiation to neck and arm. He stopped mowing and cp resolved. He is concerned since for work he does inhale fumes. Denies orthopnea, PND, edema, dizziness, palpitations. Review of Systems 2 Review of Systems: All systems reviewed & are unremarkable except as noted in HPI and below Constitutional: Constitutional: Reports as per HPI, Denies chills and Denies fever(s) Cardiovascular: Cardiovascular: Reports as per HPI, Reports chest pain and Denies irregular heart rhythm Respiratory: Respiratory: Reports as per HPI and Denies dyspnea Gastrointestinal: Gastrointestinal: Reports as per HPI and Denies abdominal pain Genitourinary: Genitourinary: Reports as per HPI and Denies dysuria Musculoskeletal: Musculoskeletal: Reports as per HPI and Reports arthralgias Neurologic: Reports as per HPI, Denies dizziness and Denies syncope [facility] Social History Social History Smoking status: Never smoker Alcohol intake: current Drinks per week: 1 Alcohol use details: rarely Substance use: never Substance use type: does not use Do You Feel Safe in your Home?: Yes Lack of Transportation: No Lack of Food: Never True Current Housing: I Have Housing Concerned About Future Housing: No Difficulty Paying Gas/Electric Bills: No Difficulty Paying for Meds: No Currently Unemployed: No Education: Associate Degree Difficulty w/ Childcare or Family Care: No Spiritual care concerns: No Meds Home Medications and Allergies Home Medications ?Medication ?Instructions ?Recorded ?Confirmed ?Type anastrozole 1 mg tablet 0.5 mg PO WEEKLY 08/13/24 09/17/24 History diclofenac sodium 75 mg 75 mg PO BID #60 tabs 08/13/24 09/17/24 Rx tablet,delayed release testosterone cypionate 100 mg/mL 25 mg IM ONCE 08/13/24 09/17/24 History intramuscular oil (Depo-Testosterone) prednisone 10 mg tablet 10 mg PO BID 10 days #20 tabs 09/17/24 09/17/24 Rx Allergies Allergy/AdvReac Type Severity Reaction Status Date / Time zolpidem (From Ambien) Allergy Mild Hallucinati Verified 09/17/24 17:42 ng Vital Signs Vital Signs - 24 hr 09/17/24 14:00 09/17/24 15:00 09/17/24 17:00 Temperature 98.2 F Pulse Rate 67 68 70 Respiratory Rate 17 18 16 Blood Pressure 137/85 142/80 H 151/98 H Pulse Oximetry 97 98 96 Oxygen Delivery Fraction of Inspired Oxygen 09/17/24 18:00 09/17/24 20:00 09/17/24 20:00 Temperature 98.2 F Pulse Rate 71 70 70 Respiratory Rate 16 Blood Pressure 146/92 H Pulse Oximetry 97 Oxygen Delivery Fraction of Inspired Oxygen 09/17/24 21:02 09/17/24 22:00 09/18/24 00:00 Temperature 98.0 F Pulse Rate 75 66 50 L Respiratory Rate 20 16 Blood Pressure 117/83 Pulse Oximetry 98 97 Oxygen Delivery Room Air Fraction of Inspired Oxygen 21 09/18/24 00:00 09/18/24 02:00 09/18/24 04:00 Temperature 97.9 F Pulse Rate 61 56 L 65 Respiratory Rate 16 Blood Pressure 123/75 Pulse Oximetry 97 Oxygen Delivery Fraction of Inspired Oxygen 09/18/24 08:00 09/18/24 08:00 09/18/24 08:09 Temperature 97.6 F Pulse Rate 66 59 L 66 Respiratory Rate 18 18 Blood Pressure 127/86 Pulse Oximetry 96 96 Oxygen Delivery Room Air Fraction of Inspired Oxygen 21 09/18/24 10:00 09/18/24 11:36 Temperature 98.2 F Pulse Rate 74 75 Respiratory Rate 20 Blood Pressure 119/71 Pulse Oximetry 96 Oxygen Delivery Fraction of Inspired Oxygen Exam 2 Const: General: cooperative, healthy appearing and comfortable Resp: Auscultation: clear to auscultation bilaterally, no crackles, no rales, no rhonchi and no wheezes Cardio: Rate: regular rate Rhythm: regular rhythm Heart sounds: no murmurs Peripheral pulses: dorsalis pedis present GI: GI Palp: No abdominal tenderness and Yes Soft to palpation Neuro: General: oriented to person, oriented to place and oriented to time Extrem: Right lower extremity: no edema Left lower extremity: no edema Results Labs and Meds 09/18/24 04:49 09/18/24 04:49 Lab results: Cardiac Enzymes 09/17/24 09/17/24 09/18/24 Range/Units 14:07 17:06 04:49 AST 61 H (17-59) U/L Troponin I 0.024 D 0.021 (0.000-0.034) ng/mL Lipids 09/18/24 Range/Units 04:49 Triglycerides 90 (<150) mg/dL Cholesterol 208 H (0-200) mg/dL CBC 09/18/24 Range/Units 04:49 WBC 8.7 (4.5-10.0) K/mm3 RBC 4.96 (4.6-6.20) M/mm3 Hgb 14.0 (14.0-18.0) g/dL Hct 45.5 (42.0-52.0) % Plt Count 203 (150-375) k/mm3 Comprehensive Metabolic Panel 09/18/24 Range/Units 04:49 Sodium 138 (137-145) mmol/L Potassium 4.3 (3.4-5.0) mmol/L Chloride 110 H (98-107) mmol/L Carbon Dioxide 23 (22-30) mmol/L BUN 18 (9-20) mg/dL Creatinine 1.26 (0.7-1.3) mg/dL Glucose 96 (65-110) mg/dL Calcium 8.7 (8.4-10.2) mg/dL AST 61 H (17-59) U/L ALT 51 H (6-50) U/L Alkaline Phosphatase 59 (38-126) U/L Total Protein 6.4 (6.3-8.2) g/dL Albumin 3.5 (3.5-5.1) g/dL Intake and Output 09/17/24 09/18/24 09/18/24 23:59 07:59 15:59 Intake Total 240 Output Total 700 Balance 240 -700 Intake: Oral 240 Output: Urine 700 Other: # Unmeasured Voids 1 3 Patient Weight 09/18/24 23:59 Weight 97.6 kg
--- NOTE | 2024-09-18 14:26 | P.DS_ITS ---
DS: Admitting Diagnosis Discharge Date 09/18/2024 Admitting Diagnosis Chest pain DS: Discharge Diagnosis Discharge Diagnosis (1) Chest pain: Code(s): R07.9 - Chest pain, unspecified Status: Acute Assessment and Plan: Second troponin with increased delta Stress test shows no abnormality EKG and nitro for chest pain Aspirin Lipid panel review Cardiology consulted (2) MEDHAT (acute kidney injury): Code(s): N17.9 - Acute kidney failure, unspecified Status: Acute Assessment and Plan: Resolved after gentle fluid resuscitation (3) Chronic knee pain: Code(s): M25.569 - Pain in unspecified knee; G89.29 - Other chronic pain Status: Acute Assessment and Plan: Tylenol and oxycodone (4) Anemia: Code(s): D64.9 - Anemia, unspecified Status: Acute Assessment and Plan: Acute signs of bleeding Anemia workup DS: Summary Hospital Course Hospital Course: 58-year-old male history of chronic knee pain presents the hospital with acute chest pain, left arm and neck pain with active. Patient states that his father had a 5 vessel CABG. Patient states that he was cutting the grass on Saturday and had a pressure sensation in his left neck, which resolved. On Saturday the patient was at work and had pressure in his left chest and neck and called his PCP with recommendations for going to the hospital if it happened again. Patient states that happened again this morning stay presented to the emergency room. He denies nausea vomiting. Blood work in the ED shows hemoglobin of 13.8, D-dimer of 0.66, BUN of 26, creatinine of 1.32, GFR of 56, AST of 53, 1st troponin negative, chest x-ray with no acute process. Patient underwent stress test this morning as per Cardiology this can be is stable angina as tested could be false negative. Started I so sore bed mononitrate 30 mg daily. Advised to follow up with Dr. Valdovinos in 2 weeks On the day of discharge, the patient was seen and examined. Vital signs were stable. Physical exam were stable and labs were reviewed at length. Discharge instructions, medications, and follow-up appointments were discussed with the patient at length and all day questions were answered. ER warnings were given. Patient TSH is elevated advised to follow-up with PCP and repeat the TSH in 6 weeks and if necessary can start hypothyroid medication. Patient reports S history of hypothyroidism and was previously on levothyroxine but he stopped taking it since he does not like synthetic heart hormone. Status at Discharge Cognitive/behavioral status at discharge: Stable Time Spent with Patient Time attestation: Total time spent providing and/or coordinating discharge services: 45 minutes Exam Narrative: General: well appearing, appears stated age. HEENT: normocephalic, atraumatic. Mucous membranes moist. EOMI, PERRLA, bilateral sclera anicteric, no conjunctival injection. Neck supple without JVD, lymphadenopathy, or bruit. Respiratory: clear to ascultation bilaterally. No rales/rhonic/wheezes. Cardiovascular: Regular rate and rhythm, normal S1-S2 upon ascultation. No murmurs, rubs, or clicks. PMI is nondisplaced, capillary refill less than 3 second. Abdomen: Soft, round, no pulsatile masses, nondistended and nontender. No rebound, no guarding. No CVA tenderness, no hepatosplenomegaly. Bowel sounds present to all four quadrants. No high pitch or tinkling sounds, resonant to percussion. Extremities: No cyanosis, clubbing, or edema present. Pulses are palpable 2/2. Active ROM to all four extremities. Neuro: Alert and orientated x 4. PERRLA. Cranial nerves 2-12 intact without focal deficit. Skin: Warm, dry, and intact, without rash, erythema, or lesion. Psych: pleasant, cooperative, normal speech, normal affect, no hallucinations, no dysarthia DS: Data Data Completed and Pending Labs on day of discharge: Labs from last 24 hours 09/18/24 09/17/24 09/17/24 04:49 17:06 14:07 WBC 8.7 RBC 4.96 Hgb 14.0 Hct 45.5 MCV 91.7 MCH 28.2 MCHC 30.8 L RDW 16.5 H Plt Count 203 MPV 11.4 H Sodium 138 Potassium 4.3 Chloride 110 H Carbon Dioxide 23 Anion Gap 5 BUN 18 Creatinine 1.26 Estim Creat Clear Calc 69 Estimated GFR 59 Glucose 96 Calcium 8.7 Iron 84 TIBC 337 % Saturation 25 Total Bilirubin 0.8 AST 61 H ALT 51 H Alkaline Phosphatase 59 Troponin I 0.021 0.024 D Total Protein 6.4 Albumin 3.5 Triglycerides 90 Cholesterol 208 H LDL Cholesterol Direct 127 HDL Direct 38 Vitamin B12 860.0 Folate > 20.0 H TSH (Reflex) 5.150 H Free T4 0.68 L Discharge Plan Discharge Attending physician on discharge: Harman Mason Consulting providers: Lee Valdovinos Discharging Clinician: Harman Mason Patient Disposition: Home Activity: other - see discharge instructions Diet: heart healthy Discharge Instructions: Please follow-up with cardiology in 2 weeks No strenuous activity Repeat TSH in 4-6 weeks and discuss the results with PCP In case of chest pain, shortness of breath, dizziness or any other symptoms please seek immediate medical care Check blood pressure 1 to 2 times a day. Record and bring into your doctor for review. Call your doctor if your blood pressure is greater than 180/110 or less than 90/45. Walk with cane or other assist device. Take precautions to avoid falls. Rise slowly from a lying or sitting position. Pause before standing or walking. Contact your doctor or call 911 and come to the Emergency Room if you have any type of trauma, lightheadedness with standing or other worrisome symptoms. Avoid NSAIDs (ibuprofen, naproxen, Aleve). Tylenol is safe to take. Follow-up with your primary care provider in 1-2 weeks. Please call for appointment. Follow-up with Cardiology in 2-4 weeks. Please call for an appointment. Thank you for using [facility] for your health care needs. Patient Instructions: Antibiotic Form, Isosorbide Dinitrate (By mouth), Nitroglycerin (By mouth), Aspirin (By mouth) Patient Language: Maori Stand Alone Forms: Work/School Release IP Follow-up/Referrals: Lee Valdovinos DO [Physician] - UNKNOWN,DOCTOR [Primary Care Provider] - Discharge Medications: New isosorbide mononitrate 30 mg Tablet Extended Release 24 Hr 30 mg PO QAM Qty: 30 0RF nitroglycerin [Nitrostat] 0.4 mg Tablet, Sublingual 0.4 mg sublingual Q5MIN PRN (Reason: Chest Pain) Qty: 30 0RF aspirin [Children's Aspirin] 81 mg Tablet,Chewable 81 mg PO DAILY@0800 Qty: 30 0RF Continued testosterone cypionate [Depo-Testosterone] 100 mg/mL oil 25 mg IM ONCE Patient Comments: takes on tuesdays and saturday day Rx Instructions: as a single dose 2 times a week anastrozole 1 mg tablet 0.5 mg PO WEEKLY Patient Comments: takes on mondays prednisone 10 mg tablet 10 mg PO BID 10 Days Qty: 20 0RF Patient Comments: pt was to start medication 09/17/24 Held diclofenac sodium 75 mg tablet,delayed release (DR/EC) 75 mg PO BID Qty: 60 0RF Hold Instructions: Resume on 10/09/24. Please discuss with Cardiology/PCP before continue Other Ambulatory Orders: Thyroid Stimulating Hormone Reflex (Routine) Timeframe: 1 Month Location: Determined by Patient Ordered By: Harman Mason Date of admission: 09/17/24 15:26 Primary Care Provider: UNKNOWN,DOCTOR Admitting Provider: Truong Page Attending physician on admission: Truong Page Condition: Stable
== END 2024-09-18 16:05 | disposition home or self-care (01) ==
LOC: ANHED 12:39 → ANHIMU 16:14
PROVIDERS: Emergency Medicine; Nurse Practitioner Gerontology; Admitting Provider Internal Medicine; Emergency Provider Emergency Medicine; Visit Provider General Practice
DX: R07.9 Chest pain, unspecified (principal); N17.9 Acute kidney failure, unspecified; M25.569 Pain in unspecified knee; G89.29 Other chronic pain; D64.9 Anemia, unspecified; E78.5 Hyperlipidemia, unspecified; Z79.52 Long term (current) use of systemic steroids; Z82.49 Family history of ischemic heart disease and other diseases of the circulatory system; Z86.39 Personal history of other endocrine, nutritional and metabolic disease
CPT/HCPCS: 36415; 71046; 71275; 80053; 80061; 82607; 82746; 83540; 83550; 83690; 83880; 84439; 84443; 84484; 85025; 85027; 85380; 85610; 85730; 93005; 93017; 96361; 96372; 96374; 99285; A9270; G0378; J1650; J7030; Q9967

== ENCOUNTER 2024-12-31 16:15 | Outpatient (RCR) | payer BC, SELFPAY | END 2025-01-04 16:21 | disposition home or self-care (01) | LOC: ANHCPREHAB 16:15 | DX: Z95.1 Presence of aortocoronary bypass graft (principal) | CPT/HCPCS: 93798 ==